=== PATIENT | female | born 1990 | race Caucasian/White ===

== ENCOUNTER 2017-11-29 06:08 | Inpatient (IN) | payer OTHER ==
[~2017-11-29] VITALS: Ht 160 cm; Wt 64.9 kg
[~2017-11-29 06:08] MED LIST: PRENA1 CHEW TA1.4 MG PO; PROAIR HFA8.5 GM INH; [UNRECOGNIZED DRUG - OTHER] PO
--- NOTE | 2017-11-29 08:09 | History & Physical Pre-Op ---
General Information and HPI MD Statement: I have seen and personally examined SIDNEY WILSON and documented this H&P. The patient is a 27 year old F who presented with a patient stated chief complaint of pt choice for section []. History of Present Illness: 26-year-old 1 para 0 at 39 weeks gestation with a past history of HSV who desires section despite counseling regarding transmission of HSV. Patient denies rupture of membranes contractions headache edema. Patient has a history of occurred anemia Gee valve prolapse alpha thalassemia asthma pituitary microadenoma asymptomatic no surgery Allergies/Medications Allergies: Coded Allergies: animal dander (SNEEZING, ITCHY EYES, COUGHING 11/26/17) Home Med list Albuterol Sulfate (Proair Hfa) 90 MCG HFA.AER.AD 2 PUF INH AD PRN RESP. ( Reported) Iron Carb,Gl/FA/B12/C/Docusate (Citranatal Lugo Tablet) 90 MG-1 MG-12 MCG-120 MG-50 MG TABLET 1 TAB PO DAILY (Reported) Past History Medical History MANAGEMENT ASSOCIATE/Reproductive: NONE (hsv), genital herpes Surgical History Pertinent Surgical History: none Past Family/Social History Psychosocial History Smoking Status: Never Smoked Review of Systems Review of Systems: -13 point review of systems Exam & Diagnostic Data Last 24 Hrs of Vital Signs/I&O Intake & Output 11/29 1600 11/29 0800 11/29 0000 Intake Total Output Total Balance Patient 143 lb Weight Physical Exam: Pleasant thin white female HEENT anicteric Throat negative erythema Lungs clear Heart S1 and S2 no murmur noted Abdomen soft. weight 3400 g Pelvic 3 cm 90% vertex intact Extremities +1 edema negative Homans reflexes +1 Assessment/Plan As Ranked By This Provider Problem List: 1.
--- NOTE | 2017-11-29 09:28 | Operative Report ---
Operative/Inv Procedure Report Surgery Date: 11/29/17 Name of Procedure: Primary low flap transverse section via Pfannenstiel skin incision Pre-Operative Diagnosis: Patient choice term Post-Operative Diagnosis: Same Estimated Blood Loss: 500 Surgeon/Plastic Battery Assembler: Bry SPANN,Karen Lamas and Sage Skaggs MD Anesthesia: block Operative/Procedure Note Note: She was taken the operating room placed supine position after adequate induction of skin testing for spinal anesthesia a timeout antibiotics. Skin was cut 2 fingerbreadths above the symphysis pubis with a knife was carried down to rectus fascia with second knife rectus fascia was dissected bluntly as well as sharply the peritoneum was entered bluntly low blade the Rowena was placed and lower and incision the visceral peritoneum the uterus was dissected anteriorly to develop a bladder flap in the lower uterine segment uses nicked entered with the back of the knife dissected bluntly once was removed from the field the infant was delivered over the abdominal wall on vertex position the cord was doubly clamped cut and infant was handed to audio visual design engineer was waiting delivering to aid in resuscitation placenta was delivered manually noted to be intact was wiped clean with 2 wet dry last insurance free of adherent membranes oversewn running locked suture was indicated interrupted [id number] for hemostasis the abdomen was area close amounts once until clear peritoneum was reapproximated 0 the fascia was reapproximated to continue sutures #1 skin was reapproximated sandeep at the end the case the urine was clear the counts correct mother and infant transferred recovery room awake alert
--- NOTE | 2017-11-30 08:51 | PN- OBGYN ---
Surgical Brief Attending Note Brief Attending Note: Seen and evaluated Doing well. Seen oob walking. States pain is okay and denies nausea. Mild shoulder discomfort Vitals per paper record Lungs clear No cvat Abdomen soft and incisional tenderness. Wound intact Fundus firm 1+ peripheral edema Pod#1 s/p LTCS Advance diet as tolerated Pain mgmt strategies reviewed. She prefers liquid medications. Abdominal binder to be used as well. VTE prophylaxis with lovenox and oob ad vicente Follow up am labs
[2017-11-30 10:54] LABS: ABSOLUTE BASOPHIL COUNT 0 /CUMM (0.0-0.2); ABSOLUTE EOSINOPHIL COUNT 0.1 /CUMM (0.0-0.7); ABSOLUTE GRANULOCYTE CT 7.9 /CUMM (1.4-6.5); ABSOLUTE LYMPH COUNT 0.7 /CUMM (1.2-3.4); ABSOLUTE MONOCYTE COUNT 0.4 /CUMM (0.10-0.60); BASOPHIL % 0.2 % (0.0-2.0); EOSINOPHIL % 0.6 % (0-5)
[2017-11-30 11:45] LABS: MEAN CORPUSCULAR HGB 29.3 PG (27.0-31.0); MEAN CORPUSCULAR HGB CONC 33.5 G/DL (33.0-37.0); MEAN CORPUSCULAR VOLUME 87.6 FL (81.0-99.0); MEAN PLATELET VOLUME 8.6 FL (7.4-10.4); PLATELET COUNT 143 /CUMM (130-400); RBC DISTRIBUTION WIDTH 13.7 % (11.5-14.5); RED BLOOD CELL CT 3.25 /CUMM (4.20-5.40); WHITE BLOOD CELL COUNT 9.1 /CUMM (4.8-10.8)
[2017-11-30 11:49] LABS: HEMATOCRIT 28.5 % (37-47)
[2017-11-30 12:02] LABS: GRANULOCYTE % 87.1 % (42.2-75.2)
[2017-11-30 13:21] LABS: ABSOLUTE BASOPHIL COUNT 0 /CUMM (0.0-0.2); ABSOLUTE EOSINOPHIL COUNT 0.1 /CUMM (0.0-0.7); ABSOLUTE GRANULOCYTE CT 9.6 /CUMM (1.4-6.5); ABSOLUTE LYMPH COUNT 0.9 /CUMM (1.2-3.4); ABSOLUTE MONOCYTE COUNT 0.4 /CUMM (0.10-0.60); BASOPHIL % 0.2 % (0.0-2.0); EOSINOPHIL % 0.5 % (0-5); GRANULOCYTE % 87.3 % (42.2-75.2); HEMATOCRIT 30.9 % (37-47); MEAN CORPUSCULAR HGB 29.8 PG (27.0-31.0); MEAN CORPUSCULAR HGB CONC 33.8 G/DL (33.0-37.0); MEAN CORPUSCULAR VOLUME 88.3 FL (81.0-99.0); MEAN PLATELET VOLUME 7.7 FL (7.4-10.4); PLATELET COUNT 166 /CUMM (130-400); RBC DISTRIBUTION WIDTH 13.4 % (11.5-14.5); RED BLOOD CELL CT 3.51 /CUMM (4.20-5.40)
[2017-12-01] MEDS ORDERED: PERCOCET 5-3251 EACH PO (09:17)
[2017-12-01] MEDS ORDERED: IBUPROFEN100 MG/52 PO (09:17)
--- NOTE | 2017-12-01 09:27 | PN- Post Delivery/GYN ---
Subjective Subjective: NO COMPLAINTS Objective Last 24 Hrs of Vital Signs/I&O PER CHART Physical Exam: PE THIN WFIN NAD ABD SOFT NT FUNDUS FIRM NT LOCHIA MINIMAL INCISION CDI EXT -EDEMA Assessment/Plan Assessment/Plan ASSESS S/P C/S PLAN CONT POC
--- NOTE | 2017-12-02 07:57 | Surgical Discharge Summary ---
Visit Information Visit Dates Admission Date: 11/29/17 Discharge Date: 12/02/17 History of Present Illness Chief Complaint: HERE TO HAVE C/S Medical History RIDE OPERATOR/Reproductive: NONE (hsv), genital herpes Surgical History Pertinent Surgical History: none Psychosocial History What is Your Primary Language? Lao Review of Systems: NEG 13 PT Hospital Course Course Attending Physician: Karen Londono MD Primary Care Physician: Angelica Gonzalez MD Hospital Course: ADMITTED FOR C/S DISCHARGED DAY3 Allergies: Coded Allergies: animal dander (SNEEZING, ITCHY EYES, COUGHING 11/26/17) Disposition Summary Disposition Principal Diagnosis: S/P C/S Additional Diagnosis: HSV Discharge Disposition: home or self care Discharge Instructions General Discharge Information Code Status: Full Code Patient's Diet: REG Patient's Activity: PELVIC REST NOLIFTING GREATER THAN 15 LBS Follow-Up Instructions/Appts: PPRV TO REMOVE EARNESTINE NO DRIVING FOR 2 WEEKS PELVIC REST 6 WEEKS Medications at Discharge Discharge Medications: Continue taking these medications: Albuterol Sulfate (Proair Hfa) 90 MCG HFA.AER.AD 2 Puff Inhale through mouth As Directed as needed for RESP. Iron Carb,Gl/FA/B12/C/Docusate (Citranatal Lugo Tablet) 90 MG-1 MG-12 MCG-120 MG-50 MG TABLET 1 Tablet ORAL DAILY Start taking the following new medications: Ibuprofen (Ibuprofen) 100 MG/5 ML ORAL.SUSP 800 Milligram ORAL EVERY 6 HOURS NEEDED as needed for UTERINE CRAMPING Qty = 60 No Refills Oxycodone HCl/Acetaminophen (Percocet 5-325 MG Tablet) 5 MG-325 MG TABLET 1 Tablet ORAL EVERY 4 HOURS NEEDED as needed for PAIN SCALE 4-6 (MODERATE ) Qty = 60 No Refills
== END 2017-12-02 11:20 | DRG 766 ==
LOC: GNO 06:08
PROVIDERS: Specialist
PROC: 10D00Z1 Extraction of Products of Conception, Low, Open Approach (ICD-10-PCS; principal; 2017-11-29)
DX: O82 Encounter for cesarean delivery without indication (principal); Z37.0 Single live birth; Z3A.39 39 weeks gestation of pregnancy; Z86.19 Personal history of other infectious and parasitic diseases; Z91.09 Other allergy status, other than to drugs and biological substances
CPT/HCPCS: GNOS; 36415; 87086; J0131; J0690; J1650; J1885; J7120